=== PATIENT | male | born 1950 | race Caucasian/White ===

== ENCOUNTER 2023-06-25 07:50 | Outpatient (CLI) | payer MEDICARE | END 2023-06-25 07:51 | disposition home or self-care (01) | LOC: CSHMRI 07:50 | PROVIDERS: ATTEND Family Medicine | DX: M47.26 Other spondylosis with radiculopathy, lumbar region (principal); Q76.49 Other congenital malformations of spine, not associated with scoliosis | CPT/HCPCS: 72148 ==

== ENCOUNTER 2023-10-29 10:48 | Outpatient (CLI) | payer MEDICARE | END 2023-10-29 10:49 | disposition home or self-care (01) | LOC: CSHCP 10:48 | PROVIDERS: ATTEND Internal Medicine | DX: R05.3 Chronic cough (principal) | CPT/HCPCS: 94060; 94726; 94729; 94760 ==